=== PATIENT | female | born 1950 | race Caucasian/White ===

== ENCOUNTER → 2019-04-18 | Emergency (ER) | payer OTHER ==
[~2019-04-18] VITALS: Ht 152.4 cm; Wt 49.0 kg
[~2019-04-18] MED LIST: ALPRAZOLAM OD0.25 MG PO; ATORVASTATIN CA10 MG PO; CALTRATE 600 +1 EACH PO; FEMARA2.5 MG PO; OSTERA TABLET1 EACH PO; TOPROL XL25 M1 PO
== END | disposition designated cancer center or children's hospital (05) ==
LOC: ER 09:56
DX: S06.5X0A Traumatic subdural hemorrhage without loss of consciousness, initial encounter (principal); W18.39XA Other fall on same level, initial encounter; Y93.89 Activity, other specified; Y92.59 Other trade areas as the place of occurrence of the external cause; Y99.8 Other external cause status
CPT/HCPCS: 70551